=== PATIENT | male | born 1980 ===

== ENCOUNTER 2018-08-12 13:50 | Inpatient (IN) | payer OTHER ==
[~2018-08-12] VITALS: Ht 172.7 cm; Wt 103.4 kg
[~2018-08-12 13:50] MED LIST: ALLOPURINOL300 MG; ATACAND32 MG; TRAMADOL HCL50 MG; VYTORIN 10/20 T1 TAB
[2018-08-12] MEDS ORDERED: AMOX-CLAV 500-1 EACH (14:22)
[2018-08-12] MEDS ORDERED: BENZONATATE200 M1 (14:22)
[2018-08-12] MEDS ORDERED: MONTELUKAST SOD10 MG (14:23)
[2018-08-12] MEDS ORDERED: APAP500 MG (14:24)
== END 2018-08-17 08:45 | disposition expired | DRG 870 ==
LOC: ER 13:50 → ICU-2 20:22
PROC: 5A1955Z Respiratory Ventilation, Greater than 96 Consecutive Hours (ICD-10-PCS; principal; 2018-08-12)
PROC: 0BH17EZ Insertion of Endotracheal Airway into Trachea, Via Natural or Artificial Opening (ICD-10-PCS; 2018-08-12)
PROC: 4A033R1 Measurement of Arterial Saturation, Peripheral, Percutaneous Approach (ICD-10-PCS; 2018-08-12)
PROC: 3E0F7GC Introduction of Other Therapeutic Substance into Respiratory Tract, Via Natural or Artificial Opening (ICD-10-PCS; 2018-08-12)
PROC: BT43ZZZ Ultrasonography of Bilateral Kidneys (ICD-10-PCS; 2018-08-12)
PROC: B246ZZZ Ultrasonography of Right and Left Heart (ICD-10-PCS; 2018-08-13)
PROC: 06HM33Z Insertion of Infusion Device into Right Femoral Vein, Percutaneous Approach (ICD-10-PCS; 2018-08-14)
PROC: 5A1D70Z Performance of Urinary Filtration, Intermittent, Less than 6 Hours Per Day (ICD-10-PCS; 2018-08-14)
DX: A41.89 Other specified sepsis (principal); J09.X1 Influenza due to identified novel influenza A virus with pneumonia; J18.8 Other pneumonia, unspecified organism; R65.21 Severe sepsis with septic shock; J96.01 Acute respiratory failure with hypoxia; N17.8 Other acute kidney failure; K92.2 Gastrointestinal hemorrhage, unspecified; I10 Essential (primary) hypertension; E11.65 Type 2 diabetes mellitus with hyperglycemia; E87.5 Hyperkalemia